=== PATIENT | male | born 1990 | race Hispanic/Latino ===

== ENCOUNTER 2024-09-01 15:52 | Emergency (ER) | payer SELFPAY ==
[~2024-09-01] VITALS: Ht 175.3 cm; Wt 78.0 kg
[~2024-09-01 15:52] MED LIST: KETO10TA2 PO; SULF1TAB42 PO
[2024-09-01 16:14] VITALS: TEMP 98.6
--- NOTE | 2024-09-01 17:10 | ERN ---
General Chief Complaint: Low Back Pain/Injury Stated Complaint: LOWER BACK PAIN, LEFT LEG PAIN Time Seen by MD: 16:08 Time Seen by Midlevel: 16:08 Source: patient History of Present Illness Initial Comments 34-year-old male presents to the ED for evaluation of lower back pain onset 2 days ago. Patient reports the pain radiates to his left lower leg. Patient reports having similar episodes in the past. He does have a history of chronic low back pain. She specifically denies any focal weakness, loss of urinary/bowel incontinence, numbness, or any other symptoms at this time. Allergies: Coded Allergies: shrimp (Unverified Allergy, Unknown, 04/13/24) Home Meds Active Scripts Ketorolac Tromethamine (Ketorolac Tromethamine) 10 Mg Tablet, 1 TAB PO TID for pain for 5 Days, #15 TAB 0 Refills Prov:MESHA FUENTES 09/01/24 Ketorolac Tromethamine (Ketorolac Tromethamine) 10 Mg Tablet, 10 MG PO BID for 5 Days, #10 TAB Prov:MESHA FUENTES 04/13/24 Sulfamethoxazole/Trimethoprim (Bactrim Ds Tablet) 800 Mg-160 Mg Tablet, 1 TAB PO BID for 10 Days, #20 TAB Prov:MESHA FUENTES 04/13/24 Past Medical History Past Medical History: No Pertinent History Past Surgical History: None ROS Dictation Constitutional: Negative for fever,chills, and weight loss Eyes: Negative for injury, pain,redness, and discharge ENT: Negative for injury,pain or swelling Cardiovascular: Negative for chest pain, palpitations, and edema Respiratory: Negative for shortness of breath, cough, and wheezing, Abdomen/GI: Negative for abdominal pain, nausea, vomiting, diarrhea, and constipation Back: Positive for back pain Negative for injury : Negative for injury, bleeding and discharge MS/Extremity: Positive for leg pain Negative for injury and deformity Skin: Negative for rash, and discoloration Neuro: Negative for headache, weakness, numbness, tingling, and seizure Psych: Negative for suicide ideation, homicidal ideation, and hallucinations Physical Exam Physical Exam Dictation General: awake, alert, NAD Head/Face: Normocephalic, atraumatic Eyes: PERRL, EOMI, vision at baseline ENT: oral cavity clear, TMs clear, no signs of infection Neck: Trachea midline, supple, no nuchal rigidity Cardiovascular: RRR, normal S1/S2, No MRGs, no JVD Respiratory: CTAB, no respiratory distress, No rales or wheezes Abdomen: Soft, non-tender, non-distended, normal bowel sounds, no guarding or rebound. Skin: Warm, dry, normal turgor, no rash MS/Extremity: Pulses equal, no cyanosis, neurovascular intact, FROM Neuro: COAx4, GCS 15, strength 5/5, CN 2-12 intact, normal cerebellar exam, normal gait, Psych: Normal behavior, mood, and affect normal MDM MDM: Differential diagnosis: Chronic back pain, sciatica, muscle strain Previous outside records reviewed: Old ER visits. Need for hospitalization: Patient does not meet criteria for hospitalization. Need for emergency major/minor surgery: No Patient's prior external medical records from other ER visits were reviewed by me as indicated. Prior testing and results from previous visits were reviewed. Prior tests were taken into account with medical decision making and resource utilization, independent historian/historians were used to obtain complete medical history. I independently interpreted the test that were performed, results were reviewed by me and considered findings on radiology if ordered. Medical management and examination interpretation discussions were had by me with other qualified healthcare professionals as indicated for the patient's care. ED Course Orders Procedure Category Date Status Time Orphenadrine Citrate PHA 09/01/24 Complete (Norflex) 18:00 Triamcinolone Acet PHA 09/01/24 Complete 40mg/Ml 1ml (Kenalog 18:00 Ketorolac PHA 09/01/24 Complete Tromethamine 30mg/Ml 18:00 Current Medications Medications (Trade) Dose Ordered Sig/Glen Route PRN Reason Start Time Stop Time Status Last Admin Dose Admin Ketorolac Tromethamine (toRADol) 30 mg ONCE ONCE IM 09/01/24 18:00 09/01/24 18:01 DC 09/01/24 18:23 Orphenadrine Citrate (Norflex) 60 mg ONCE ONCE IM 09/01/24 18:00 09/01/24 18:01 DC 09/01/24 18:23 Triamcinolone Acetonide (Kenalog 40) 40 mg ONCE ONCE IM 09/01/24 18:00 09/01/24 18:01 DC 09/01/24 18:23 Vital Signs Date Time Temp Pulse Resp B/P (MAP) Pulse Ox O2 Delivery O2 Flow Rate FiO2 09/01/24 18:29 85 18 132/68 99 Room Air* 0 21 09/01/24 16:14 98.6 89 18 158/84 98 DX & DISP Disposition: Discharge Departure Impression: Primary Impression: Chronic low back pain Condition: Stable Scripts Ketorolac Tromethamine (Ketorolac Tromethamine) 10 Mg Tablet 1 TAB PO TID for pain for 5 Days, #15 TAB 0 Refills Prov: MESHA FUENTES 09/01/24 Referrals: SELF,REFERRAL (PCP) Time of Disposition: 17:47 I have reviewed, & agreed with my scribe's, documentation. (Entered by Stefany Montes De Oca, acting as a scribe for AYAKA Fuentes) I have reviewed the case, and I agree with, Diagnosis and Plan I performed the substantive portion of the visit. I have reviewed and personally made and approve the management plan that is documented in the note by myself or the CLEVE. I acknowledge for responsibility for the patient's management plan. I personally scribed for MESHA FUENTES (BE) on 09/01/24 at 17:10. Electronically submitted by Stefany Montes De Oca ([email or web address]). MESHA FUENTES Sep 01, 2024 17:10
[2024-09-01] MEDS ORDERED: KETO10TA2 PO (17:47)
[2024-09-01] MEDS: TRIAMCINOLONE ACETONIDE 40 MG/ML 1ML VIAL IM ONE (18:23)
[2024-09-01] MEDS: ketOROlac 30MG VIAL (30MG/ML) IM ONE (18:23)
[2024-09-01] MEDS: ORPHENADRINE 60MG/2ML IM ONE (18:23)
[2024-09-01 18:29] VITALS: BP 132/68; PULSE 85; RESP 18; O2SAT 99
== END 2024-09-01 18:35 | disposition home or self-care (01) ==
LOC: EDH 15:52
DX: G89.29 Other chronic pain (principal); M54.50 Low back pain, unspecified; Z79.899 Other long term (current) drug therapy
CPT/HCPCS: 99284; 96372 ×3; J3301; J1885; J2360